=== PATIENT | female | born 1985 | race Native Hawaiian/Other Pacific Islander ===

== ENCOUNTER 2017-08-17 10:46 | Inpatient (IN) | payer OTHER ==
[2017-08-17 11:43] VITALS: BMI 31.1
[2017-08-17] MEDS ORDERED: Nalbuphine 20 mg/ml Inj (1 ml) IVP PRN (11:45)
[2017-08-17] MEDS: Lactated Ringer's 1,000 ML IV SCH ×2 (12:00→21:26)
--- NOTE | 2017-08-17 12:07 | OBADHP ---
Datetime: 08/17/2017 11:48 Admit Comment, IP Provider: Patient is a @ 39.5 wks with leaking since on site nurse, no bleedi ng, +FM, no ctxns. Patient has history of RH negative, s/p RHogam in this . Otherwise no oth er antepartum issues, no medical problems, no surgical history VE=FT/50/-3 [id number] mod denis, +accels, no decels TOCO=ctxning q irregular Speculum - grossly ruptured A/P 1. Patient grossly ruptured, FT/50/-3. will start Cytotec 50 mg PO q 4 hrs for induction. Patient to eat lunch 2. DIscussed pain management, patient does not want pain medication at this time 3. CEFM and TOCO Pelvic Type - PN: Adequate Extremities - PN: Normal Abdomen - PN: Normal Back - PN: Normal Breast - PN: Normal Lungs - PN: Normal Heart - PN: Normal Thyroid - PN: Normal Neurologic - PN: Normal HEENT - PN: Normal General - PN: Normal Presentation-Admit: Vertex FHR - Baseline A Provider: 130 Membranes, Provider: Ruptured Contraction Comments Provider: Irregular Pool Provider: Positive Vital Signs Provider: Reviewed; Within Normal Limits IP Chief Complaint: Suspected ruptured membranes NICHD Variability Prov Fetus A: Moderate 6-25bpm NICHD Accel Fetus A IP Provider: 15X15 NICHD Decel Fetus A IP Provider: None Dilatation, Provider: FT Effacement, Provider: 50 Station, Provider: -3 Genitourinary Exam: Normal DTRs - PN: Normal EGA AdmitDate IP: 39.5 IP Adm Impression: Term, intrauterine IP Admit Plan: Admit to unit; Initiate labor induction protocol
[2017-08-17 12:45] LABS: BASO # 0.1 K/uL (0.0-0.2); BASO % 0.5 % (0.0-2.0); EOS # 0.2 K/uL (0.0-0.7); EOS % 1.7 % (0.0-4.0); HEMATOCRIT 33.6 % (34.0-47.0); LYMPH # 1.5 K/uL (1.0-4.3); LYMPH % 15.1 % (20.0-40.0); MEAN CELL VOLUME 78.9 fl (81.0-99.0); MEAN CORPUSCULAR HEMOGLOBIN 25.1 pg (27.0-31.0); MEAN CORPUSCULAR HGB CONC 31.8 g/dL (33.0-37.0); MEAN PLATELET VOLUME 9.2 fl (7.2-11.7); MONO # 0.7 K/uL (0.0-0.8); MONO % 7.6 % (0.0-10.0); NEUT # 7.3 K/uL (1.8-7.0); NEUT % 75.1 % (50.0-75.0); RED CELL DISTRIBUTION WIDTH 17.2 % (11.5-14.5); WHITE BLOOD COUNT 9.8 K/uL (4.8-10.8)
[2017-08-18] MEDS: Lactated Ringer's 1,000 ML IV SCH ×2 (03:06→10:35)
[2017-08-18] MEDS ORDERED: Lactated Ringer's 1,000 ML IV SCH (09:30)
--- NOTE | 2017-08-18 09:36 | OBPN ---
Datetime: 08/18/2017 09:15 IP Progress Impression: Reassuring heart rate IP Informed Consent Obtain: Vaginal Delivery; Risks, Benefits and Alternatives Discussed IP Procedures: Epidural Placement IP Progress Plan: Antibiotic therapy Pool Provider: Positive Membranes, Provider: Ruptured Amniotic Fluid Color, Provider: Clear Contraction Comments Provider: + (none on montior) FHR - Baseline A Provider: 130 Presentation-Admit: Vertex IP Progress Note Comment: She was admitted for Oligo and had ROM 10am yesterday. She was given Cyto freddy x 5 doses. + CTX pain. Given Nubain last night. Nitrous Oxide 4am. SHe ius asking about C/S e lective...just has painful CTX Exam - diffucult secondary to discomfort A: Early labor PLAN: Discussion about vaginal delivery and C/S...will manage pain and re-examine NICHD Accel Fetus A IP Provider: 15X15 FHR Category Provider Fetus A: Category I NICHD Variability Prov Fetus A: Moderate 6-25bpm Dilatation, Provider: 1-2 Effacement, Provider: long Station, Provider: high NICHD Decel Fetus A IP Provider: None Datetime: 08/17/2017 11:48 Vital Signs Provider: Reviewed; Within Normal Limits
[2017-08-18] MEDS ORDERED: Fentanyl/Bupivacaine HCl 250 ML EPI ONE (09:47)
[2017-08-18] MEDS ORDERED: Bupivacaine HCl 0.25% PF (10 ml) Inj ONE ×2 (09:48→14:47)
--- NOTE | 2017-08-18 11:02 | OBPN ---
Datetime: 08/18/2017 10:42 IP Progress Impression: Normal progression of labor; Reassuring heart rate IP Informed Consent Obtain: Vaginal Delivery; Risks, Benefits and Alternatives Discussed IP Progress Plan: Augmentation Pool Provider: Positive Membranes, Provider: Ruptured Contraction Comments Provider: 3-7m FHR - Baseline A Provider: 130 Presentation-Admit: Vertex IP Progress Note Comment: She feel better after epidural A: Latent phase of labor PLAN discussion about augmentation...she agrees. Start Pitocin NICHD Accel Fetus A IP Provider: 15X15 FHR Category Provider Fetus A: Category I NICHD Variability Prov Fetus A: Moderate 6-25bpm Dilatation, Provider: 2 Effacement, Provider: 50 Station, Provider: -2 NICHD Decel Fetus A IP Provider: None
[2017-08-18] MEDS: Ampicillin 2 GM in Sodium Chloride 0.9% 100 ML IVPB SCH ×2 (13:47→18:46)
[2017-08-18] MEDS ORDERED: Lidocaine 1% Inj (20ml) ONE (16:31)
--- NOTE | 2017-08-18 16:35 | OBPN ---
Datetime: 08/18/2017 16:30 IP Progress Impression: Normal progression of labor; Reassuring heart rate IP Informed Consent Obtain: Vaginal Delivery; Risks, Benefits and Alternatives Discussed IP Progress Plan: Augmentation Contraction Comments Provider: + FHR - Baseline A Provider: 140 Presentation-Admit: Vertex IP Progress Note Comment: Second stage of labor Anticiapte NICHD Accel Fetus A IP Provider: 15X15 FHR Category Provider Fetus A: Category II NICHD Variability Prov Fetus A: Moderate 6-25bpm Dilatation, Provider: 10 Effacement, Provider: 100 Station, Provider: 0 NICHD Decel Fetus A IP Provider: Variable
[2017-08-18] MEDS ORDERED: Oxytocin 30 units/LR 500ML 30 U/500 ML BAG IV ONE (19:23)
[2017-08-18] MEDS ORDERED: ceFAZolin IV 1 gm in Dextrose 1 GM/50 ML BAG IVPB STA (19:24)
[2017-08-18] MEDS ORDERED: Phenylephrine 10 mg/ml Inj ONE (19:28)
--- NOTE | 2017-08-18 19:28 | OBPN ---
Datetime: 08/18/2017 19:20 IP Progress Impression Other: requesting C/S IP Informed Consent Obtain: Section Delivery; Risks, Benefits and Alternatives Discussed IP Progress Plan: Deliver- Section IP Progress Note Comment: She was fully dilated, start pushing 17:30pm...epidural shut off whe she w as pushing ineffectively/. She progressed and decdied that she doesn't want to push any more. Opting for C/S Informed consent obtained after discussion about procedure, risks/complications explained.
[2017-08-18] MEDS ORDERED: ePHEDrine 50 mg/ml Inj ONE (19:29)
[2017-08-18] MEDS ORDERED: Morphine 5 mg/10 ml preservative-free Inj(Duramorph) ONE (19:30)
[2017-08-18] MEDS ORDERED: Bupivacaine HCl 0.5% PF (30 ml) Inj ONE (19:34)
[2017-08-18] MEDS ORDERED: Lidocaine 2% MPF (5 ml) Inj ONE (20:10)
[2017-08-18] MEDS ORDERED: Gentamicin 80mg/50ml NS 80 MG/50 ML BAG IVPB STA (20:28)
[2017-08-18] MEDS ORDERED: Oxycodone/Acetaminophen 5/325 mg Tab PO PRN (21:03)
[2017-08-18] MEDS ORDERED: Ampicillin 2 GM in Sodium Chloride 0.9% 100 ML IVPB SCH (21:06)
--- NOTE | 2017-08-18 23:54 | OBPPN ---
Datetime: 08/18/2017 23:40 PP Heart Prov: Abnormal PP Lungs Prov: Normal PP Abdomen/Uterus Prov: Normal PP Extremities Prov: Normal PP C/S Incision Prov: Normal PP Comments Phys Exam Prov: Urine output 225cc since surgery PP Progress Note Prov: Notified of Temp 101 pulse 110-120's She feels fine. 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
[2017-08-19 00:19] LABS: BASO # 0.1 K/uL (0.0-0.2); BASO % 0.4 % (0.0-2.0); HEMATOCRIT 27.8 % (34.0-47.0); LYMPH # 1.4 K/uL (1.0-4.3); MEAN CELL VOLUME 78.2 fl (81.0-99.0); MEAN CORPUSCULAR HEMOGLOBIN 24.6 pg (27.0-31.0); MEAN CORPUSCULAR HGB CONC 31.4 g/dL (33.0-37.0); MEAN PLATELET VOLUME 8.9 fl (7.2-11.7); MONO # 0.5 K/uL (0.0-0.8); MONO % 3.6 % (0.0-10.0); NEUT # 12.1 K/uL (1.8-7.0); RED CELL DISTRIBUTION WIDTH 16.7 % (11.5-14.5)
[2017-08-19 00:24] LABS: RBC URINE 591 /hpf (0-3); URINE BILIRUBIN NEGATIVE (NEGATIVE); URINE BLOOD LARGE (NEGATIVE); URINE COLOR YELLOW (YELLOW); URINE GLUCOSE (UA) NEG (Normal); URINE KETONE 20 mg/dL (NEGATIVE); URINE LEUKOCYTE ESTERASE TRACE Leu/uL (Negative); URINE PROTEIN 100 mg/dL (NEGATIVE); URINE UROBILINOGEN 0.2-1.0 mg/dL (0.2-1.0); WBC URINE 21 /hpf (0-5)
[2017-08-19] MEDS ORDERED: Gentamicin 80mg/50ml NS 80 MG/50 ML BAG IVPB SCH ×2 (01:00)
[2017-08-19] MEDS: Gentamicin 80mg/50ml NS 80 MG/50 ML BAG IVPB SCH ×3 (04:53→16:52)
[2017-08-19] MEDS: Ampicillin 2 GM in Sodium Chloride 0.9% 100 ML IVPB SCH ×4 (06:34→21:53)
[2017-08-19 07:56] LABS: HEMATOCRIT 24.5 % (34.0-47.0); MEAN CELL VOLUME 78.4 fl (81.0-99.0); MEAN CORPUSCULAR HEMOGLOBIN 24.5 pg (27.0-31.0); MEAN CORPUSCULAR HGB CONC 31.3 g/dL (33.0-37.0); WHITE BLOOD COUNT 11.7 K/uL (4.8-10.8)
--- NOTE | 2017-08-19 09:57 | OBPPN ---
Datetime: 08/19/2017 09:50 PP Pain Prov: Within normal limits PP Nausea Prov: Denies PP Flatus Prov: Yes PP Breasts Prov: Normal PP Heart Prov: Normal PP Lungs Prov: Normal PP Abdomen/Uterus Prov: Normal PP Lochia Prov: Normal PP Vulva/Perineum Prov: Normal PP CVA Tenderness Prov: Normal PP Extremities Prov: Normal PP Comments Phys Exam Prov: Fundus firm under umbilicus PP Impression Prov: Endometritis PP Plan Prov: Continue present management; Antibiotic therapy PP Progress Note Prov: Patient denies CP, no SOB, no N/V, tolerating PO liquids, mild lochia, +reyes with clear urine adequate output, minimal ambulation A/P POD #1 1. Patient continues to have low grade fever, last temp 99.2. Will continue antibiotics for suspec cheri endometritis for at least 24 hours of no fever 2. Remove reyes, ambulate 3. Reg diet 4. Encourage 5. Percocet/Motrin prn pain IP PP Procedures: None Vital Signs Provider PP: Reviewed; Within Normal Limits
[2017-08-19] MEDS: Oxycodone/Acetaminophen 5/325 mg Tab PO PRN (23:55)
--- NOTE | 2017-08-20 08:53 | OBPPN ---
Datetime: 08/20/2017 08:43 PP Pain Prov: Within normal limits PP Nausea Prov: Denies PP Flatus Prov: Yes PP Breasts Prov: Normal PP Heart Prov: Normal PP Lungs Prov: Normal PP Abdomen/Uterus Prov: Normal PP Lochia Prov: Normal PP Vulva/Perineum Prov: Normal PP CVA Tenderness Prov: Normal PP Extremities Prov: Normal PP Comments Phys Exam Prov: Fundus firm under umbilicus Incision clean/dry/intact PP Impression Prov: Normal progression PP Plan Prov: Continue present management PP Progress Note Prov: Patient feeling well, denies CP, no SOB, no N/V, tolerating PO diet, no fever , ambulating/voiding well, mild lochia, +Flatus, no BM A/P POD #2 1. Antibiotics has been discontinued, patient afebrile 2. Continue regular diet 3. Percocet/Motrin prn pain 4. aEncourage ambulation/ IP PP Procedures: None Vital Signs Provider PP: Reviewed; Within Normal Limits
[2017-08-21] MEDS: Oxycodone/Acetaminophen 5/325 mg Tab PO PRN (01:11)
--- NOTE | 2017-08-21 01:46 | OP ---
PROCEDURE DATE: 08/18/2017 PREOPERATIVE DIAGNOSES: Second stage of labor, maternal intrapartum temperature, maternal request for section at full dilation. POSTOPERATIVE DIAGNOSES: Second stage of labor, maternal intrapartum temperature, maternal request for section at full dilation. PROCEDURE: Primary low transverse section via Pfannenstiel incision, repair of lower uterine segment extension on the right side. SURGEON: Chaitanya Mcdaniels DO PLASMA CENTER TECHNICIAN: Erin Johnston MD (Dr. Erin Johnston is an SENIOR IT SPECIALIST physician, who had to be available to assist on this case. Her presence was necessary for this difficult surgery. She was present from time of incision to delivery of the to closure of the skin). TYPE OF ANESTHESIA: Epidural. ANESTHESIA ADMINISTERED BY: Royce Capellan MD OPERATIVE FINDINGS: Live female delivered from cephalic presentation. One loose nuchal cord noted. Placenta was delivered intact spontaneously. The ovaries and tubes appeared to be within normal limits grossly. Blood loss 800 mL. She remained hemodynamically stable throughout the procedure. DESCRIPTION OF PROCEDURE: Belinda was brought to the operating room, placed in a supine position. Compression boots were placed on both lower extremities and a catheter was placed and noted to be draining clear urine. She was placed in a supine position. She was draped and prepped in the usual sterile manner. Once adequate anesthesia was obtained, a Pfannenstiel incision was made using a scalpel. This incision was taken down to underlying fascia using electrocautery. Fascia was nicked in the midline and extended bilaterally using electrocautery. The inferior aspect of the fascia was grasped using 2 Letha clamps, tented up and the rectus muscle was both bluntly and sharply dissected using electrocautery, the superior aspect of the fascia was done the same way superiorly in the midline and rectus muscle was bluntly and peritoneum was identified, tented up using 2 Janet clamps, so peritoneum was then incised using Metzenbaum scissors and extended superiorly and inferiorly with direct visualization of bladder and intestines. Bladder blade was then inserted. A bladder flap was created above the bladder line using Metzenbaum scissors and extending it bilaterally using Metzenbaum scissors. Bladder blade was then inserted behind the bladder flap. Low transverse incision was made using a scalpel. Upon entering the uterus, clear fluid was noted. The incision was then extended bilaterally using bandage scissors. First, the 's head was delivered as atraumatically as possible with some help from down below by one of the nurses for gentle pressure superiorly of the infant's head. Infant was delivered and 1 loose nuchal cord was noted around the neck and this was reduced successfully. The remainder of the was then delivered as atraumatically as possible and infant was then bulb suctioned nasopharyngeally and handed to the athletic events scorer in attendance once the cord was clamped and cut. Cord bloods were obtained. Placenta was delivered intact spontaneously and intact. Uterus was then exteriorized, cleared of debris and clots. Good contracted uterus was noted. The IV Pitocin given. The lower uterine segment edges were identified and grasped using T-clamps and Allis clamps. Small extension on the right lower uterine aspect was noted. This was first repaired using 0 Vicryl suture in an interlocking fashion. The remainder of the lower uterine segment was then closed using 0 Vicryl suture in an interlocking fashion. The second layer of the uterus was closed on the main uterine incision line using 0 Vicryl suture imbricating the first layer. Good hemostasis was assured. Posterior cul-de-sac was cleared of debris and clots. Ovaries and tubes appeared to be within normal limits grossly. The uterus was placed back into peritoneal cavity. Paracolic gutters and lower uterine segment noted to have good hemostasis. Right lower uterine extension was noted to have good hemostasis as well. 0 Vicryl suture was used to approximate the peritoneum in running fashion. The rectus muscle was noted to have good hemostasis. The rectus muscle was then approximated x3 using 0 Vicryl suture. 0 Vicryl suture was used to approximate the fascial layer in a running fashion. Irrigation was performed. Subcuticular layer was then approximated using 2-0 plain suture x3. 3-0 Vicryl suture was used to approximate the skin. Dermabond, pressure bandage and Steri-Strips were applied. All equipments was removed and accounted for. Besides ampicillin antepartum, she was given gentamicin and Mefoxin preoperatively. Chaitanya Mcdaniels DO
--- NOTE | 2017-08-21 10:34 | OBPPN ---
Datetime: 08/21/2017 10:32 PP Pain Prov: Within normal limits PP Nausea Prov: Denies PP Flatus Prov: Yes PP BM Prov: No PP Breasts Prov: Normal PP Heart Prov: Normal PP Lungs Prov: Normal PP Abdomen/Uterus Prov: Normal PP Lochia Prov: Normal PP Vulva/Perineum Prov: Normal PP CVA Tenderness Prov: Normal PP Extremities Prov: Normal PP Impression Prov: Normal progression PP Plan Prov: Continue present management PP Progress Note Prov: She has no BM. No pain. No diszziness. her baby is staying for observation a nd AB A: S/P C/S day 3 PLAN: dulcolax supp x 1 and anticiapte discahrge in AM Vital Signs Provider PP: Reviewed; Within Normal Limits
--- NOTE | 2017-08-21 10:37 | OBPPN ---
Datetime: 08/21/2017 10:32 PP Progress Note Prov: She has no BM. No pain. No diszziness. her baby is staying for observation a nd AB A: S/P C/S day 3 Anemia prob blood loss fever - afebbril Rh neg - baby is Rh neg PLAN: dulcolax supp x 1 and anticiapte discahrge in AM
[2017-08-21] MEDS ORDERED: Oxycodone/Acetaminophen 5/325 mg Tab PO PRN (11:05)
--- NOTE | 2017-08-22 09:42 | OBPPN ---
Datetime: 08/22/2017 09:39 PP Pain Prov: Within normal limits PP Nausea Prov: Denies PP Flatus Prov: Yes PP Breasts Prov: Not Done PP Heart Prov: Normal PP Lungs Prov: Normal PP Abdomen/Uterus Prov: Normal PP Lochia Prov: Not Done PP Vulva/Perineum Prov: Not Done PP CVA Tenderness Prov: Normal PP Extremities Prov: Normal PP Impression Prov: Normal progression PP Plan Prov: Discharge PP Progress Note Prov: Patient doing well ambulating tolerating diet and pain well controlled Vital signs stable afebrile Uterus firm below the umbilicus Extremities no Homans Status post section postop day #4 Anticipate discharge No heavy lifting Follow-up PMD Vital Signs Provider PP: Reviewed
--- NOTE | 2017-08-22 09:44 | OBDCSUM ---
Datetime: 08/22/2017 09:42 Discharged to, Provider: Home Follow up at, Provider: PMD Disch Instr Activity: Normal activity Disch Instr Diet: Regular Discharge Instructions, Provider: Routine instructions given Discharge Diagnosis, Provider: Term Delivered Follow up in weeks, Provider: 1 week Disch Referrals: None Contraception discussed, Prov: Yes Disch Activity Restrictions: No lifting; Nothing in vagina - [place], tampons, douche Contraception after Delivery: Undecided
[2017-08-22 22:11] VITALS: BP 113/59; PULSE 94; RESP 18; TEMP 98.6; O2SAT 100
== END 2017-08-22 16:45 | disposition home or self-care (01) | DRG 765 ==
LOC: H.EROB2 10:46 → H.L&D 10:47 → H.EROB2 11:43 → H.L&D 11:43 → H.OB/GYN 08-19 04:30
PROVIDERS: ADMIT Obstetrics & Gynecology; ATTEND Obstetrics & Gynecology
PROC: 4A1HXCZ Monitoring of Products of Conception, Cardiac Rate, External Approach (ICD-10-PCS; 2017-08-17)
PROC: 10D00Z1 Extraction of Products of Conception, Low, Open Approach (ICD-10-PCS; principal; 2017-08-18)
DX: O69.81X0 Labor and delivery complicated by cord around neck, without compression, not applicable or unspecified (principal); O86.4 Pyrexia of unknown origin following delivery; Z37.0 Single live birth; Z3A.39 39 weeks gestation of pregnancy